=== PATIENT | female | born 1980 | race Caucasian/White ===

== ENCOUNTER 2016-05-12 03:35 | Emergency (ER) | payer OTHER ==
--- NOTE | ~2016-05-12 | CR142 ---
[facility] A Service of [facility] & [facility] RADIOLOGY TEXT RESULTS PATIENT: CHEYENNE SILVA LOCATION: [facility] : [birth year] UNIT #: [id number] AGE: [address]: Keli Kumar APRN SEX: F ORDER DR: [id number] [facility] [address] [place], [place] [address] [id number] E MR#: [id number] Acc #: [id number] NAME: CHEYENNE SILVA : 1980 SEX: F STUDY DATE/TIME: 05/12/2016 02:53 UNIT: [facility] ROOM: STUDY DESCRIPTION: CR Hand Min 3 Views Rt Attending Physician: Keli Kumar A.P.R.N. Ordering Physician: Keli Kumar A.P.R.N. Primary Care Physician: Primary Care Physician No MEDICAL IMAGING REPORT This report is preliminary unless electronic signature is present EXAM Right hand, 05/12 at 02:53 INDICATION Hand pain, particular in the first metacarpal for 1 day. Patient smashed hand in cabinets earlier today. FINDINGS AP, lateral, and oblique projections of the hand show good mineralization with normal carpal, metacarpal, and phalangeal anatomy without indication of fracture, dislocation, or soft tissue radiopaque foreign body. IMPRESSION Normal right hand. Dictated by... Kevin Nova Jr., M.D. THIS IS AN ELECTRONICALLY VERIFIED REPORT Kevin Nova Jr., M.D. at 05/12/2016 11:00 PM WARREN/reddy TD: 05/12/2016 17:08 JOB #: [id number] MEDICAL IMAGING REPORT COPY
[~2016-05-12 03:35] MED LIST: BACTRIM DS TABL1 TA2 PO; IBUPROFEN800 MG PO; NO MEDICATIONS; VOLTAREN75 MG PO
== END 2016-05-12 04:15 | disposition home or self-care (01) ==
LOC: CED 03:35
DX: S60.221A Contusion of right hand, initial encounter (principal); F17.210 Nicotine dependence, cigarettes, uncomplicated; W23.0XXA Caught, crushed, jammed, or pinched between moving objects, initial encounter; Y92.009 Unspecified place in unspecified non-institutional (private) residence as the place of occurrence of the external cause
CPT/HCPCS: 29125; 73130; 99283; J1885

== ENCOUNTER 2016-08-09 22:12 | Emergency (ER) | payer OTHER ==
--- NOTE | ~2016-08-09 | CR63 ---
[facility] A Service of [facility] & [facility] RADIOLOGY TEXT RESULTS PATIENT: CHEYENNE SILVA LOCATION: SED : 80 UNIT #: [id number] AGE: [address]: Aris Culver SEX: F ORDER DR: [id number] [place] [id number] E MR#: [id number] Acc #: [id number] NAME: CHEYENNE SILVA : 1980 SEX: F STUDY DATE/TIME: 08/09/2016 23:30 UNIT: SED ROOM: STUDY DESCRIPTION: CR Chest 2 View Attending Physician: Aris Culver P.A.-C. Ordering Physician: Aris Culver P.A.-C. Primary Care Physician: No Primary Care Physician MEDICAL IMAGING REPORT This report is preliminary unless electronic signature is present. EXAM Two-view chest. INDICATIONS Rib pain after a fall 2 hours ago. PROCEDURE Frontal and lateral views of the chest. COMPARISON None. FINDINGS Heart size is normal. Lungs are clear. No pleural fluid. No pneumothorax. IMPRESSION No active process. Dictated by... Barry Maurice M.D. THIS IS AN ELECTRONICALLY VERIFIED REPORT Barry Maurice M.D. at 08/13/2016 7:18 AM EED/danika TD: 08/10/2016 08:28 JOB #: [id number] MEDICAL IMAGING REPORT Page 1 of 1
[2016-11-29] MEDS ORDERED: VICODIN ES 7.51 EAC1 PO (05:29)
[2016-11-29] MEDS ORDERED: GABAPENTIN600 MG PO (05:29)
== END 2016-08-10 00:26 | disposition home or self-care (01) ==
LOC: SED 22:12
DX: S20.219A Contusion of unspecified front wall of thorax, initial encounter (principal); M25.512 Pain in left shoulder; F17.210 Nicotine dependence, cigarettes, uncomplicated; Z91.040 Latex allergy status; W18.30XA Fall on same level, unspecified, initial encounter; Y92.098 Other place in other non-institutional residence as the place of occurrence of the external cause
CPT/HCPCS: 71020; 99284